=== PATIENT | male | born 1990 | race Caucasian/White ===

== ENCOUNTER 2017-04-05 16:31 | Emergency (ER) | payer BC, OTHER ==
--- NOTE | 2017-04-05 16:35 | UC ---
Cardiac HPI - HPI Summary HPI Summary: 26 YEAR OLD MALE PRESENTS WITH RIGHT SIDED CHEST PAIN WORSE WITH EXERTION. - History of Current Complaint Stated Complaint: CHEST PAIN Time Seen by Provider: 04/05/17 16:34 Hx Obtained From: Patient Onset/Duration: Sudden Onset Initial Severity: Moderate Current Severity: Moderate Chest Pain Location: Right Anterior Aggravating Factor(s): Exertion Alleviating Factor(s): Rest - Allergy/Home Medications Allergies/Adverse Reactions: Allergies Allergy/AdvReac Type Severity Reaction Status Date / Time No Known Allergies Allergy Verified 04/05/17 16:42 PMH/Surg Hx/FS Hx/Imm Hx - Surgical History Surgical History: None - Social History Substance Use Type: Marijuana Review of Systems Constitutional: Negative Skin: Negative Eyes: Negative ENT: Negative Respiratory: Negative Cardiovascular: Chest Pain Gastrointestinal: Negative Genitourinary: Negative Motor: Negative Neurovascular: Negative Musculoskeletal: Negative Neurological: Negative Psychological: Negative All Other Systems Reviewed And Are Negative: Yes Physical Exam Triage Information Reviewed: Yes Vital Signs Reviewed: Yes Eye Exam: Normal ENT Exam: Normal Dental Exam: Normal Neck exam: Normal Neck: Positive: 1 Respiratory Exam: Normal Cardiovascular Exam: Normal Abdominal Exam: Normal Musculoskeletal Exam: Normal Neurological Exam: Normal Psychological Exam: Normal Skin Exam: Normal - Clinical Impression Provider Diagnoses: CHEST PAIN Discharge - Discharge Plan Condition: Stable Disposition: HOME Patient Education Materials: Chest Pain (ED) Referrals: Jace Wright MD [Medical Doctor] - Additional Instructions: PLEASE SUGGESTED TO GO TO ER FOR CHEST CHEST PAIN.
[2017-04-05 16:42] VITALS: BP 138/72
[2017-04-05] MEDS ORDERED: Aspirin EC Low Dose* 81 MG TAB.EC PO ONE (16:50)
[2017-04-05] MEDS ORDERED: Aspirin Low Dose CHEW TAB* 81 MG ONE (16:57)
[2017-04-05] MEDS ORDERED: Aspirin Low Dose CHEW TAB* 81 MG PO ONE (17:01)
== END 2017-04-05 17:05 | disposition home or self-care (01) ==
LOC: UCCORT 16:31
DX: R07.89 Other chest pain (principal); R00.1 Bradycardia, unspecified; F12.90 Cannabis use, unspecified, uncomplicated
CPT/HCPCS: 93005; 99202; A9270-GY; G0463

== ENCOUNTER 2017-04-08 10:36 | Emergency (ER) | payer OTHER ==
[2017-04-08 11:16] VITALS: BP 131/64
--- NOTE | 2017-04-28 10:29 | UC ---
Rolando Carvalho Benjamin, scribed for Emy Marquez DO on 04/08/17 at 1241 . Cardiac HPI - HPI Summary HPI Summary: 26yo male c/o chest discomfort in his right anterior chest, closer to the sternum last Saturday and had rigid muscle spasms in his right chest later that day. Pt was seen at [facility] and had a cardiac workup which pt was r/oed for cardiac cause, but wasnt given a dx otherwise. Pt went to work this morning and upon lifting a heavy box at work, pt felt right chest pain. pain is now 3/10 and at peak was 6/10. Pt states that movements and lifting make his pain worse. Pt also states that his deep breath is resistant due to his chest discomfort. Pt denies any injury to the area. PMHx of rib fx. 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 - Onset/Duration: Gradual Onset, Lasting Days - 5 days, Still Present, Worse Since - this morning Initial Severity: Moderate Current Severity: Moderate Chest Pain Location: Right Anterior Character: Sharp/Stabbing Aggravating Factor(s): Movement Alleviating Factor(s): Rest Associated Signs & Symptoms: Positive: Negative - Allergy/Home Medications Allergies/Adverse Reactions: Allergies Allergy/AdvReac Type Severity Reaction Status Date / Time No Known Allergies Allergy Verified 04/08/17 11:11 PMH/Surg Hx/FS Hx/Imm Hx - Surgical History Surgical History: Yes Surgery Procedure, Year, and Place: hernia - Family History Known Family History: Negative: Cardiac Disease, Hypertension, Diabetes - Social History Occupation: Employed Full-time Lives: With Family Alcohol Use: Rare Substance Use Type: None Substance Use Comment - Amount & Last Used: few times a day Smoking Status (MU): Never Smoked Tobacco Review of Systems Constitutional: Negative Skin: Negative Eyes: Negative ENT: Negative Respiratory: Negative Cardiovascular: Chest Pain - right chest wall pain Gastrointestinal: Negative Genitourinary: Negative Motor: Negative Neurovascular: Negative Musculoskeletal: Negative Neurological: Negative Psychological: Negative All Other Systems Reviewed And Are Negative: Yes Physical Exam Triage Information Reviewed: Yes Appearance: Well-Appearing, No Pain Distress, Well-Nourished Vital Signs: Initial Vital Signs Temp 98.1 F 04/08/17 11:11 Pulse 65 04/08/17 11:11 Resp 18 04/08/17 11:11 BP 131/64 04/08/17 11:11 Pulse Ox 100 04/08/17 11:11 Vital Signs Reviewed: Yes Eyes: Positive: Conjunctiva Clear. Negative: Discharge ENT: Positive: Normal ENT inspection, Hearing grossly normal. Negative: Muffled /hoarse voice Neck: Positive: Supple, Nontender Respiratory: Positive: Lungs clear, Normal breath sounds, No respiratory distress, No accessory muscle use Cardiovascular: Positive: RRR, No Murmur Musculoskeletal Exam: Normal Musculoskeletal: Positive: Strength Intact, ROM Intact Neurological Exam: Normal Neurological: Positive: Alert, Muscle Tone Normal Psychological Exam: Normal Psychological: Positive: Age Appropriate Behavior Skin Exam: Normal Skin: Negative: rashes - Assessment/Plan Course Of Treatment: Reviewed pts list of medications and allergies. Blood pressure noted. - Clinical Impression Provider Diagnoses: CHEST WALL PAIN Discharge - Discharge Plan Condition: Stable Disposition: HOME Prescriptions: Naproxen TAB* [Naprosyn 250 mg TAB*] 500 mg PO BID PRN #14 tab PRN Reason: Pain traMADol TAB* [Ultram*] 50 mg PO Q8H PRN #14 tab MDD 3 TABS PRN Reason: Pain Patient Education Materials: Rib Contusion (ED) Forms: *Work Release Referrals: Jaylen Vallejo DO [Primary Care Provider] - Additional Instructions: ULTRAM (tramadol hydrochloride): Ultram is an excellent drug for pain relief. It is not a narcotic, but it works in a similar way. Ultram can take up to two hours for full effect. Although not addicting, Ultram is best avoided in patients with a history of drug abuse. Ultram should not be used with alcohol, sleeping pills, or narcotics. If you're prone to seizures, Ultram can make you more likely to have a seizure. Ultram can be hazardous when combined with MAO-inhibitor antidepressants (such as Nardil or Parnate). Be sure your doctor is aware of all medicines you are taking. Persons with severe liver or kidney disease should increase the time between doses of Ultram. Discuss this with your doctor if you're uncertain. Side effects of Ultram can include dizziness, nausea, constipation, sleepiness, and itching. (These side effects are also seen with narcotic pain medicines.) Please call your doctor if you have other disturbing effects. ANTI-INFLAMMATORY MEDICATION: You have received a prescription for an antiinflammatory agent. This is an excellent, safe drug for pain control. In addition, it has potent antiinflammatory effects which are beneficial, especially in the treatment of injuries, arthritis, or tendonitis. It's best to take this medicine with food. Persons with ulcer disease or allergy to aspirin should notify their physician of this before taking this drug. Take the medication exactly as prescribed. Don't take additional doses unless instructed to do so by your doctor. If you develop wheezing, shortness of breath, hives, faintness, stomach pain, vomiting, or dark black stools, return for re-evaluation at once. YOU WOULD LIKELY BENEFIT FROM OSTEOPATHIC MANIPULATION. WE RECOMMEND THAT YOU FIND AN OSTEOPATHIC PHYSICIAN IN YOUR AREA WHO DOES LYMPHATIC, MYOFACIAL AND VISCERAL WORK The documentation as recorded by the Rolando pratt Benjamin accurately reflects the service I personally performed and the decisions made by me, Emy Marquez DO.
== END 2017-04-08 13:18 | disposition home or self-care (01) ==
LOC: UCEAST 10:36
DX: R07.89 Other chest pain (principal)
CPT/HCPCS: 99212; G0463

== ENCOUNTER 2019-02-09 11:58 | Emergency (ER) | payer OTHER ==
[2019-02-09 12:44] VITALS: BP 122/74
[2019-02-09] MEDS ORDERED: Tetan/Diph/Pertus SYR(Tdap)* 0.5 ML SYR(BOOSTRIX) use SYR IM ONE (13:23)
--- NOTE | 2019-02-09 13:25 | UC ---
Skin Complaint HPI - HPI Summary HPI Summary: 28-year-old male comes in with chief by laceration to the left lower leg. This happened just prior to arrival when he scraped his lateral left leg on a piece of metal. It did bleed which was stopped by direct pressure. It does not continue to bleed. Patient reports he has not had a tetanus shot in 10 years. Feels well otherwise. - History of Current Complaint Chief Complaint: UCLaceration Time Seen by Provider: 02/09/19 13:18 Stated Complaint: LEG LACERATION Pain Intensity: 0 - Allergy/Home Medications Allergies/Adverse Reactions: Allergies Allergy/AdvReac Type Severity Reaction Status Date / Time No Known Allergies Allergy Verified 02/09/19 12:44 Home Medications: Home Medications NK [No Home Medications Reported] 02/09/19 [History Confirmed 02/09/19] PMH/Surg Hx/FS Hx/Imm Hx Previously Healthy: Yes - Surgical History Surgical History: Yes Surgery Procedure, Year, and Place: Hernia - Family History Known Family History: Negative: Cardiac Disease, Hypertension, Diabetes - Social History Alcohol Use: Rare Substance Use Type: Marijuana Substance Use Comment - Amount & Last Used: few times a day Smoking Status (MU): Never Smoked Tobacco - Immunization History Most Recent Tetanus Shot: unknown Review of Systems All Other Systems Reviewed And Are Negative: Yes Constitutional: Positive: Negative Skin: Positive: Other - SEE HPI Eyes: Positive: Negative ENT: Positive: Negative Respiratory: Positive: Negative Cardiovascular: Positive: Negative Gastrointestinal: Positive: Negative Motor: Positive: Negative Neurovascular: Positive: Negative Musculoskeletal: Positive: Negative Neurological: Positive: Negative Psychological: Positive: Negative Is Patient Immunocompromised?: No Physical Exam Triage Information Reviewed: Yes Appearance: Well-Appearing, No Pain Distress, Well-Nourished Vital Signs: Initial Vital Signs Temp 98.7 F 02/09/19 12:41 Pulse 74 02/09/19 12:41 Resp 12 02/09/19 12:41 BP 122/74 02/09/19 12:41 Pulse Ox 100 02/09/19 12:41 Vital Signs Reviewed: Yes Eye Exam: Normal Eyes: Positive: Conjunctiva Clear Neck: Positive: Supple Respiratory: Positive: No respiratory distress Musculoskeletal: Positive: Strength Intact, ROM Intact Neurological: Positive: Alert Psychological: Positive: Age Appropriate Behavior Skin: Positive: Other - Superficial lacerations on the left lower leg. There are several of these one is 1 cm and there are 2 half centimeter. No active bleeding. Course/Dx - Course Course Of Treatment: Patient received his T tap in clinic. The laceration was superficial and did not require any closure. - Diagnoses Provider Diagnosis: Laceration of left leg Discharge - Sign-Out/Discharge Documenting (check all that apply): Patient Departure All imaging exams completed and their final reports reviewed: No Studies - Discharge Plan Condition: Stable Disposition: HOME Patient Education Materials: Laceration Without Closure (ED) Referrals: Jaylen Vallejo DO [Primary Care Provider] - Additional Instructions: FOLLOW UP WITH YOUR DOCTOR IF NOT COMPLETELY IMPROVED. YOU WERE GIVEN THE TDAP (TETANUS/DIPTHERIA) IMMUNIZATION TODAY. GET RECHECKED SOONER IF YOUR CONDITION WORSENS; SIGNS OF INFECTION OR ANY QUESTIONS OR CONCERNS. - Billing Disposition and Condition Condition: STABLE Disposition: Home
== END 2019-02-09 13:35 | disposition home or self-care (01) ==
LOC: UCEAST 11:58
DX: S81.812A Laceration without foreign body, left lower leg, initial encounter (principal); W26.8XXA Contact with other sharp object(s), not elsewhere classified, initial encounter; Y92.9 Unspecified place or not applicable
CPT/HCPCS: 90471; 90715; 99211; G0463